=== PATIENT | male | born 1940 | race Caucasian/White ===

== ENCOUNTER 2022-09-23 10:53 | Day surgery (SDC) | payer MEDICARE, OTHER ==
[~2022-09-23] VITALS: Ht 177.8 cm; Wt 80.3 kg
[2022-09-23] VITALS (7 sets, daily range): BP systolic 153–169; BP diastolic 64–97
[2022-09-23] MEDS ORDERED: ATOR10TA70 PO (11:24)
[2022-09-23] MEDS ORDERED: MULT-227 PO (11:24)
[2022-09-23] MEDS ORDERED: LATA2.5D14 EACHEYE (11:24)
[2022-09-23] MEDS ORDERED: ASPI81TA52 PO (11:24)
[2022-09-23] MEDS ORDERED: VALS1TAB73 PO (11:24)
[2022-09-23] MEDS ORDERED: BRIM5DRO6 EACHEYE (11:24)
[2022-09-23] MEDS ORDERED: APIX5TAB3 PO (11:24)
[2022-09-23] MEDS ORDERED: FOLI0.4T6 PO (11:24)
[2022-09-23] MEDS ORDERED: OMEG-5 PO (11:24)
[2022-09-23] MEDS ORDERED: LORazepam 0.5 MG tablet PO PRN (11:35)
[2022-09-23] MEDS ORDERED: normal saline 1,000 ML IV SCH (11:35)
[2022-09-23] MEDS ORDERED: diphenhydrAMINE 25mg capsule PO PRN (11:35)
[2022-09-23 11:51] LABS: BASOPHILS # (AUTO) 0.1 X10'3 (0-0.2); BASOPHILS % (AUTO) 0.8 % (0-1); EOSINOPHILS # (AUTO) 0.4 X10'3 (0-0.9); EOSINOPHILS % (AUTO) 5.1 % (0-6); HEMATOCRIT 42.1 % (42.0-52.0); HEMOGLOBIN 14.4 g/dl (14.0-17.9); LYMPHOCYTES # (AUTO) 1.6 X10'3 (1.1-4.8); MEAN CORPUSCULAR HEMOGLOBIN 33.8 PG (27.0-31.0); MEAN CORPUSCULAR HGB CONC 34.2 g/dL (33.0-36.5); MEAN CORPUSCULAR VOLUME 99.1 FL (78-98); MEAN PLATELET VOLUME 7.9 FL (7.4-10.4); MONOCYTES # (AUTO) 0.9 X10'3 (0-0.9); MONOCYTES % (AUTO) 10.5 % (2-12); NEUTROPHILS # (AUTO) 5.4 X10'3 (1.8-7.7); NEUTROPHILS % (AUTO) 64.6 % (42-75); PLATELET COUNT 211 X10'3 (140-440); RED BLOOD COUNT 4.25 X10'6 (4.70-6.10); RED CELL DISTRIBUTION WIDTH 13.1 % (11.5-14.5); WHITE BLOOD COUNT 8.3 X10'3 (4.5-11.0)
[2022-09-23 11:56] LABS: ANION GAP 12 (8-16); BLOOD UREA NITROGEN 13 MG/DL (7-18); BUN/CREATININE RATIO 16.9 (10.0-20.0); CALCIUM 9.2 MG/DL (8.5-10.1); CHLORIDE 102 MMOL/L (99-107); CREATININE 0.77 MG/DL (0.60-1.10); GLUCOSE 94 MG/DL (70-104); POTASSIUM 4.3 MMOL/L (3.5-5.1); SODIUM 137 MMOL/L (135-145); TOTAL CARBON DIOXIDE 23.4 MMOL/L (24-32); eGFR > 90 ML/MIN
[2022-09-23] MEDS ORDERED: LIDOcaine 1% (10mg/ml) 2ml vial ONE (12:13)
[2022-09-23] MEDS ORDERED: verapamil 2.5 mg/ml inj IV ONE (12:13)
[2022-09-23] MEDS ORDERED: heparin 1,000unit/ml 10ml vial 10 ML ONE (12:14)
[2022-09-23] MEDS ORDERED: nitroGLYCERIN-Tridil 50MG/D5W 250 ML IV ONE (12:14)
[2022-09-23] MEDS ORDERED: midazolam 1 mg/ML 2ml injection ONE ×2 (12:14→14:16)
[2022-09-23] MEDS ORDERED: iohexol 350MG/ML 100ml bottle IV ONE (12:14)
[2022-09-23] MEDS ORDERED: fentaNYL/PF 50MCG/1 ML 2ML syringe ONE (12:14)
[2022-09-23] MEDS ORDERED: LIDOcaine 1% (10mg/ml)w/preservative inj. 20ml MDV ONE (13:23)
[2022-09-23] MEDS ORDERED: LIDOcaine 1% 30ml preserv. free vial ONE (13:33)
[2022-09-23 14:41] LABS: ISTAT HGB ART 10.2 g/dl (14.0-17.9); ISTAT Hct ART 30 %PCV (42-52); ISTAT O2 SATURATION ARTERIAL 94 % (95-98); ISTAT SOURCE ART
[2022-09-23] MEDS ORDERED: hydrALAZINE 20mg/ml inj. IV ONE (14:57)
[2022-09-23] MEDS ORDERED: HYDROcodone/acetaminophen 10/325mg tab PO PRN (15:40)
[2022-09-23] MEDS ORDERED: HYDROcodone/acetaminophen 5mg/325mg tablet PO PRN (15:40)
== END 2022-09-23 17:25 | disposition home or self-care (01) ==
LOC: SSTAY O 10:53
PROVIDERS: ATTEND Student in an Organized Health Care Education/Training Program
DX: I35.0 Nonrheumatic aortic (valve) stenosis (principal); I25.10 Atherosclerotic heart disease of native coronary artery without angina pectoris; I48.0 Paroxysmal atrial fibrillation; I65.29 Occlusion and stenosis of unspecified carotid artery; E11.9 Type 2 diabetes mellitus without complications; E78.5 Hyperlipidemia, unspecified; I10 Essential (primary) hypertension; F17.290 Nicotine dependence, other tobacco product, uncomplicated; I73.9 Peripheral vascular disease, unspecified; M06.9 Rheumatoid arthritis, unspecified; Z79.01 Long term (current) use of anticoagulants; Z79.899 Other long term (current) drug therapy; Z79.82 Long term (current) use of aspirin
CPT/HCPCS: 36415; 80048; 82803; 82948; 85014; 85025; 85610; 93005; 93460; 99152; 99153; J0360; J1644; J2250; J3010; J3490; J7030; Q0163; Q9967; A6258; C1894

== ENCOUNTER 2022-11-13 11:52 | Outpatient (CLI) | payer MEDICARE, OTHER ==
[~2022-11-13 11:52] MED LIST: APIX5TAB3 PO; ASPI81TA52 PO; ATOR10TA70 PO; BRIM5DRO6 EACHEYE; FOLI0.4T6 PO; LATA2.5D14 EACHEYE; MULT-227 PO; OMEG-5 PO; VALS1TAB73 PO
[2022-11-13 12:37] LABS: BASOPHILS # (AUTO) 0.1 X10'3 (0-0.2); EOSINOPHILS # (AUTO) 0.6 X10'3 (0-0.9); EOSINOPHILS % (AUTO) 8.9 % (0-6); HEMATOCRIT 42.2 % (42.0-52.0); HEMOGLOBIN 14.3 g/dl (14.0-17.9); LYMPHOCYTES # (AUTO) 1.1 X10'3 (1.1-4.8); LYMPHOCYTES % (AUTO) 16.5 % (21-51); MEAN CORPUSCULAR HEMOGLOBIN 34.5 PG (27.0-31.0); MEAN CORPUSCULAR HGB CONC 33.9 g/dL (33.0-36.5); MEAN CORPUSCULAR VOLUME 101.6 FL (78-98); MEAN PLATELET VOLUME 7.9 FL (7.4-10.4); MONOCYTES # (AUTO) 0.6 X10'3 (0-0.9); MONOCYTES % (AUTO) 8.9 % (2-12); NEUTROPHILS # (AUTO) 4.4 X10'3 (1.8-7.7); NEUTROPHILS % (AUTO) 64.7 % (42-75); PLATELET COUNT 208 X10'3 (140-440); RED BLOOD COUNT 4.16 X10'6 (4.70-6.10); WHITE BLOOD COUNT 6.8 X10'3 (4.5-11.0)
[2022-11-13 12:48] LABS: APTT 31 SECONDS (22-32)
[2022-11-13] MEDS ORDERED: IODIXANOL 320 MG/ML INFUS..BTL 100ML IV ONE (12:55)
[2022-11-13 12:57] LABS: ALANINE AMINOTRANSFERASE 21 U/L (12-78); ALBUMIN 3.8 G/DL (3.4-5.0); ALBUMIN/GLOBULIN RATIO 1.2 (1.1-1.5); ALKALINE PHOSPHATASE 113 IU/L (46-116); ANION GAP 10 (8-16); ASPARTATE AMINO TRANSFERASE 17 U/L (10-37); BILIRUBIN,TOTAL 0.4 MG/DL (0.1-1.0); BLOOD UREA NITROGEN 13 MG/DL (7-18); BUN/CREATININE RATIO 17.6 (10.0-20.0); CALCIUM 9.2 MG/DL (8.5-10.1); CHLORIDE 104 MMOL/L (99-107); CREATININE 0.74 MG/DL (0.60-1.10); GLUCOSE 110 MG/DL (70-104); POTASSIUM 4.1 MMOL/L (3.5-5.1); SODIUM 140 MMOL/L (135-145); TOTAL CARBON DIOXIDE 26.1 MMOL/L (24-32); TOTAL PROTEIN 6.9 G/DL (6.4-8.2); eGFR > 90 ML/MIN
[2022-11-13 14:12] LABS: ABG BASE EXCESS -0.5 mmol/L (-2.0-2.0); ABG HCO3 23.5 mmol/L (22.0-26.0); ABG OXYGEN SATURATION 95.8 % (94-97); ABG PCO2 (T) 36.6 mmHg (35.0-48.0); ALLEN'S TEST POSITIVE; FCOHb 2.2 % (0.0-3.9); FMetHb 0.1 % (0.0-1.5); FO2Hb 93.6 % (94-97); TOTAL HEMOGLOBIN 14.5 G/dl (14.0-17.9)
== END 2022-11-13 23:59 | disposition home or self-care (01) ==
LOC: RAD 11:52
PROVIDERS: ATTEND Internal Medicine Cardiovascular Disease
DX: I08.0 Rheumatic disorders of both mitral and aortic valves (principal); J43.2 Centrilobular emphysema; K76.0 Fatty (change of) liver, not elsewhere classified; K44.9 Diaphragmatic hernia without obstruction or gangrene; K76.89 Other specified diseases of liver; K42.9 Umbilical hernia without obstruction or gangrene; K57.30 Diverticulosis of large intestine without perforation or abscess without bleeding; R06.02 Shortness of breath; I65.29 Occlusion and stenosis of unspecified carotid artery; I70.0 Atherosclerosis of aorta; I25.10 Atherosclerotic heart disease of native coronary artery without angina pectoris; M41.85 Other forms of scoliosis, thoracolumbar region; M47.815 Spondylosis without myelopathy or radiculopathy, thoracolumbar region; Z87.891 Personal history of nicotine dependence
CPT/HCPCS: 36415; 36600; 71046; 71275; 74174; 80053; 82803; 83880; 85018; 85025; 85610; 85730; 94010; 94727; 94729; J3490; Q9967